=== PATIENT | female | born 1995 | race African-American/Black ===

== ENCOUNTER 2016-09-26 13:42 | Emergency (ER) | payer SELFPAY ==
--- NOTE | 2016-09-26 14:47 | RAD ---
INDICATION: Right knee injury. TECHNIQUE: 4 views of the right knee were obtained. FINDINGS: The bones are in normal alignment. No joint effusion or fracture is seen. Joint spaces appear maintained. IMPRESSION: NO EVIDENCE FOR FRACTURE.
[2016-09-26] MEDS ORDERED: Ibuprofen TAB* 600 MG PO ONE (15:43)
--- NOTE | 2016-09-26 15:43 | ED ---
Lower Extremity - HPI Summary HPI Summary: 20F presents with right knee pain. She states her right knee twisted outwards when she was walking. She denies falling on the knee. She state the pain is on the medial aspect of her knee. She has not ambulate since. She denies any numbness or tingling. She denies any clicking or popping of the extremity. She denies any weakness. She denies any previous injury to the area. She has not taken anything for pain. She states the knee may have dislocated and then relocated. - History of Current Complaint Chief Complaint: EDExtremityLower Stated Complaint: RT KNEE INJURY Time Seen by Provider: 09/26/16 15:14 Pain Intensity: 2 PMH/Surg Hx/FS Hx/Imm Hx Endocrine/Hematology History: Denies: Hx Anticoagulant Therapy Cardiovascular History: Denies: Hx Hypertension Infectious Disease History: No Infectious Disease History: Denies: Traveled Outside the [place] in Last 30 Days - Family History Known Family History: Negative: Cardiac Disease - Social History Alcohol Use: Rare Substance Use Type: Reports: None Smoking Status (MU): Never Smoked Tobacco Review of Systems Negative: Fever Negative: Chest Pain Negative: Shortness Of Breath Positive: Myalgia - right knee pain All Other Systems Reviewed And Are Negative: Yes Physical Exam Triage Information Reviewed: Yes Vital Signs On Initial Exam: Initial Vitals Temp Pulse Resp BP Pulse Ox 98.8 F 88 18 104/60 100 09/26/16 14:06 09/26/16 14:06 09/26/16 14:06 09/26/16 14:06 09/26/16 14:06 Vital Signs Reviewed: Yes Appearance: Positive: Well-Appearing Skin: Positive: Warm, Dry Head/Face: Positive: Normal Head/Face Inspection Eyes: Positive: Normal, Conjunctiva Clear Respiratory/Lung Sounds: Positive: Clear to Auscultation, Breath Sounds Present Cardiovascular: Positive: Normal, RRR Musculoskeletal: Positive: Strength/ROM Intact - right knee with guilherme, Other - tender over medial aspect of knee, sensation grossly intact, neg anterior drawer and danny, good pulses Diagnostics - Vital Signs Vital Signs Temp Pulse Resp BP Pulse Ox 09/26/16 15:39 98.8 F 78 18 110/68 100 09/26/16 14:06 98.8 F 88 18 104/60 100 - Laboratory Lab Statement: Any lab studies that have been ordered have been reviewed, and results considered in the medical decision making process. - Radiology knee Xray Interpretation: No Acute Changes Radiology Interpretation Completed By: Radiologist Lower Extremity Course/Dx - Course Course Of Treatment: 20F presents with right knee pain. She states her right knee twisted outwards when she was walking. She denies falling on the knee. She state the pain is on the medial aspect of her knee. She has not ambulate since. She denies any numbness or tingling. She denies any clicking or popping of the extremity. She denies any weakness. She denies any previous injury to the area. She has not taken anything for pain. She states the knee may have dislocated and then relocated. on exam tender over medial aspect of knee, neurovascular intact. neg anterior drawer and danny. xray normal. told to use RICE and follow up with primary. if no improvement potentially might need to follow up with ortho. - Diagnoses Differential Diagnosis/HQI/PQRI: Positive: Fracture (Closed), Sprain, Strain Provider Diagnoses: Right knee pain Discharge - Discharge Plan Condition: Good Disposition: HOME Patient Education Materials: Knee Pain (ED) Referrals: [facility] [place] [facility]IAN REFERRAL [Outside] Marifer Juares MD [Medical Doctor] - Additional Instructions: Take Tylenol or ibuprofen every 6 hours as needed for pain Apply ice, rest, elevate Follow up with primary care physician within 5 days if no improvement Return to ED if develop any new or worsening symptoms
[2016-09-26] MEDS ORDERED: Ibuprofen ADULT LIQ* 600 MG/30 ML UDC PO ONE (16:30)
== END 2016-09-26 16:38 | disposition home or self-care (01) ==
LOC: ED 13:42
DX: M25.561 Pain in right knee (principal)
CPT/HCPCS: 99282; A9270-GY